=== PATIENT | female | born 1965 | race Caucasian/White ===

== ENCOUNTER 2018-07-13 20:06 | Emergency (ER) | payer MEDICARE ==
[~2018-07-13] VITALS: Ht 170.2 cm; Wt 99.0 kg
[2018-07-13 20:26] VITALS: BP 160/93
== END 2018-07-13 23:09 | disposition left against medical advice (07) ==
LOC: ER 20:07
DX: R05 Cough (principal); Z53.21 Procedure and treatment not carried out due to patient leaving prior to being seen by health care provider
CPT/HCPCS: 71045

== ENCOUNTER 2018-07-24 02:00 | Emergency (ER) | payer MEDICARE, OTHER ==
[~2018-07-24] VITALS: Ht 170.2 cm; Wt 98.6 kg
[2018-07-24 02:05] VITALS: BP 131/70
[2018-07-24 02:51] LABS: BASOPHILS # (AUTO) 0.1 X10'3 (0-0.2); BASOPHILS % (AUTO) 0.7 % (0-1); EOSINOPHILS # (AUTO) 0.1 X10'3 (0-0.9); EOSINOPHILS % (AUTO) 1.6 % (0-6); HEMATOCRIT 37.8 % (35.0-45.0); HEMOGLOBIN 12.4 g/dl (12.0-16.0); LYMPHOCYTES # (AUTO) 2.6 X10'3 (1.1-4.8); LYMPHOCYTES % (AUTO) 29.2 % (21-51); MEAN CORPUSCULAR HEMOGLOBIN 29.5 PG (27.0-31.0); MEAN CORPUSCULAR HGB CONC 32.9 % (33.0-36.5); MEAN CORPUSCULAR VOLUME 89.7 FL (78-98); MEAN PLATELET VOLUME 8.1 FL (7.4-10.4); MONOCYTES % (AUTO) 11.2 % (2-12); NEUTROPHILS # (AUTO) 5.2 X10'3 (1.8-7.7); NEUTROPHILS % (AUTO) 57.3 % (42-75); PLATELET COUNT 291 X10'3 (140-440); RED BLOOD COUNT 4.22 X10'6 (4.20-5.60); RED CELL DISTRIBUTION WIDTH 14.4 % (11.5-14.5); WHITE BLOOD COUNT 9.1 X10'3 (4.5-11.0)
[2018-07-24] MEDS ORDERED: ketorolac trometh inj. 60 MG/2 ML VIAL IM ONE (02:55)
[2018-07-24 02:57] LABS: ALANINE AMINOTRANSFERASE 27 U/L (12-78); ALBUMIN 3.3 G/DL (3.4-5.0); ALBUMIN/GLOBULIN RATIO 0.9 (1.1-1.5); ALKALINE PHOSPHATASE 111 IU/L (46-116); ANION GAP 3 (8-16); ASPARTATE AMINO TRANSFERASE 21 U/L (10-37); BILIRUBIN,TOTAL 0.3 MG/DL (0.1-1.0); BLOOD UREA NITROGEN 19 MG/DL (7-18); BUN/CREATININE RATIO 23.5 (6.6-38.0); CALCIUM 8.5 MG/DL (8.5-10.1); CHLORIDE 101 MMOL/L (99-107); CREATININE 0.81 MG/DL (0.40-0.90); GLUCOSE 98 MG/DL (70-104); POTASSIUM 4.2 MMOL/L (3.5-5.1); SODIUM 137 MMOL/L (135-145); TOTAL CARBON DIOXIDE 32.9 MMOL/L (24-32); TOTAL PROTEIN 7.1 G/DL (6.4-8.2); eGFR 75 ML/MIN
[2018-07-24 03:02] LABS: D-DIMER 0.71 MG/L FEU (0-0.50); INR 0.9 INR; PARTIAL THROMBOPLASTIN TIME 27 SECONDS (22-32); PROTHROMBIN TIME 9.6 SECONDS (9.0-12.0)
[2018-07-24 03:05] LABS: MAGNESIUM 1.8 MG/DL (1.5-2.4)
[2018-07-24] MEDS ORDERED: furosemide 20MG tablet PO ONE (04:30)
== END 2018-07-24 04:39 | disposition home or self-care (01) ==
LOC: ER 02:00
DX: R60.0 Localized edema (principal); R51 Headache; G62.9 Polyneuropathy, unspecified
CPT/HCPCS: 36415; 71045; 80053; 83735; 83880; 84484; 85025; 85379; 85610; 85730; 93005; 93971; 96372; 99285; J1885

== ENCOUNTER 2018-07-27 03:58 | Emergency (ER) | payer MEDICARE, OTHER ==
[~2018-07-27] VITALS: Ht 170.2 cm; Wt 90.9 kg
[2018-07-27 04:02] VITALS: BP 150/80
[2018-07-27] MEDS ORDERED: ketorolac trometh inj. 60 MG/2 ML VIAL IM ONE (04:20)
== END 2018-07-27 04:39 | disposition home or self-care (01) ==
LOC: ER 03:59
DX: G89.29 Other chronic pain (principal); G62.9 Polyneuropathy, unspecified; Z98.890 Other specified postprocedural states
CPT/HCPCS: 96372; 99284; J1885

== ENCOUNTER 2018-08-03 05:43 | Emergency (ER) | payer MEDICARE, OTHER ==
[~2018-08-03] VITALS: Ht 170.2 cm; Wt 95.0 kg
[2018-08-03 05:47] VITALS: BP 123/83
== END 2018-08-03 06:33 ==
LOC: ER 05:44
DX: L08.9 Local infection of the skin and subcutaneous tissue, unspecified (principal); G62.9 Polyneuropathy, unspecified; J45.909 Unspecified asthma, uncomplicated; F17.200 Nicotine dependence, unspecified, uncomplicated; F12.90 Cannabis use, unspecified, uncomplicated; Z90.49 Acquired absence of other specified parts of digestive tract; Z98.890 Other specified postprocedural states; Z89.511 Acquired absence of right leg below knee
CPT/HCPCS: 99282

== ENCOUNTER 2018-08-22 00:06 | Emergency (ER) | payer MEDICARE, OTHER ==
[~2018-08-22] VITALS: Ht 170.2 cm; Wt 90.0 kg
[2018-08-22 00:11] VITALS: BP 122/84
[2018-08-22] MEDS ORDERED: ketorolac trometh. 30mg/ml inj. IM ONE (01:00)
== END 2018-08-22 01:17 | disposition home or self-care (01) ==
LOC: ER 00:07
DX: G89.29 Other chronic pain (principal); M54.5 Low back pain; J45.909 Unspecified asthma, uncomplicated; F12.90 Cannabis use, unspecified, uncomplicated; F17.200 Nicotine dependence, unspecified, uncomplicated; Z90.49 Acquired absence of other specified parts of digestive tract; Z98.890 Other specified postprocedural states; Z89.511 Acquired absence of right leg below knee
CPT/HCPCS: 96372; 99284; J1885

== ENCOUNTER 2018-08-29 11:32 | Emergency (ER) | payer MEDICARE, OTHER ==
[~2018-08-29] VITALS: Ht 170.2 cm; Wt 90.9 kg
[2018-08-29 12:00] VITALS: BP 152/99
[2018-08-29 12:45] LABS: BASOPHILS % (AUTO) 0.4 % (0-1); EOSINOPHILS # (AUTO) 0.1 X10'3 (0-0.9); EOSINOPHILS % (AUTO) 1.8 % (0-6); LYMPHOCYTES % (AUTO) 25.7 % (21-51); MEAN CORPUSCULAR HEMOGLOBIN 28.3 PG (27.0-31.0); MEAN CORPUSCULAR HGB CONC 32.5 % (33.0-36.5); MEAN PLATELET VOLUME 8.1 FL (7.4-10.4); MONOCYTES # (AUTO) 0.9 X10'3 (0-0.9); MONOCYTES % (AUTO) 11.8 % (2-12); NEUTROPHILS # (AUTO) 4.8 X10'3 (1.8-7.7); NEUTROPHILS % (AUTO) 60.3 % (42-75); PLATELET COUNT 286 X10'3 (140-440); RED CELL DISTRIBUTION WIDTH 14.7 % (11.5-14.5); WHITE BLOOD COUNT 7.9 X10'3 (4.5-11.0)
[2018-08-29 13:05] LABS: ALANINE AMINOTRANSFERASE 36 U/L (12-78); ALBUMIN 3.3 G/DL (3.4-5.0); ALBUMIN/GLOBULIN RATIO 0.9 (1.1-1.5); ALKALINE PHOSPHATASE 119 IU/L (46-116); ANION GAP 8 (8-16); ASPARTATE AMINO TRANSFERASE 20 U/L (10-37); BILIRUBIN,TOTAL 0.2 MG/DL (0.1-1.0); BLOOD UREA NITROGEN 11 MG/DL (7-18); BUN/CREATININE RATIO 17.5 (6.6-38.0); CALCIUM 8.9 MG/DL (8.5-10.1); CHLORIDE 102 MMOL/L (99-107); CREATININE 0.63 MG/DL (0.40-0.90); GLUCOSE 126 MG/DL (70-104); SODIUM 139 MMOL/L (135-145); TOTAL CARBON DIOXIDE 29.2 MMOL/L (24-32); TOTAL PROTEIN 7.1 G/DL (6.4-8.2); eGFR > 90 ML/MIN
[2018-08-29] MEDS ORDERED: furosemide 20MG tablet PO ONE (14:25)
[2018-08-29] MEDS ORDERED: FURO-150 PO (14:26)
== END 2018-08-29 14:45 | disposition home or self-care (01) ==
LOC: ER 11:32
DX: R60.0 Localized edema (principal); L98.8 Other specified disorders of the skin and subcutaneous tissue; G62.9 Polyneuropathy, unspecified; J45.909 Unspecified asthma, uncomplicated; M79.7 Fibromyalgia; M19.90 Unspecified osteoarthritis, unspecified site; F12.90 Cannabis use, unspecified, uncomplicated; Z90.49 Acquired absence of other specified parts of digestive tract; Z76.0 Encounter for issue of repeat prescription; Z89.511 Acquired absence of right leg below knee; Z98.890 Other specified postprocedural states; Z79.899 Other long term (current) drug therapy
CPT/HCPCS: 36415; 80053; 83880; 85025; 93970; 99284

== ENCOUNTER 2018-09-22 10:30 | Emergency (ER) | payer MEDICARE, OTHER ==
[~2018-09-22] VITALS: Ht 170.2 cm; Wt 90.0 kg
[~2018-09-22 10:30] MED LIST: FURO-150 PO
[2018-09-22 11:02] VITALS: BP 123/93
[2018-09-22] MEDS ORDERED: orphenadrine citrate 60mg/2ml inj. IM ONE (11:20)
[2018-09-22] MEDS ORDERED: ketorolac tromethamine 15mg/ml inj. IM ONE (11:20)
[2018-09-22] MEDS ORDERED: IBUP-1985 PO (11:44)
== END 2018-09-22 11:50 | disposition home or self-care (01) ==
LOC: ER 10:30
DX: G89.29 Other chronic pain (principal); M54.41 Lumbago with sciatica, right side; M54.2 Cervicalgia; J45.909 Unspecified asthma, uncomplicated; F12.90 Cannabis use, unspecified, uncomplicated; Z89.511 Acquired absence of right leg below knee; Z90.49 Acquired absence of other specified parts of digestive tract; Z98.890 Other specified postprocedural states; Z79.899 Other long term (current) drug therapy
CPT/HCPCS: 96372; 99283; J1885; J2360

== ENCOUNTER 2018-11-12 10:00 | Emergency (ER) | payer MEDICARE, OTHER ==
[~2018-11-12] VITALS: Ht 170.2 cm; Wt 75.0 kg
[~2018-11-12 10:00] MED LIST changes: -FURO-150 PO; +IBUP-1985 PO
[2018-11-12 10:14] VITALS: BP 126/77
[2018-11-12] MEDS ORDERED: orphenadrine citrate 60mg/2ml inj. IM ONE (10:35)
[2018-11-12] MEDS ORDERED: ketorolac trometh inj. 60 MG/2 ML VIAL IM ONE (10:35)
== END 2018-11-12 10:55 | disposition home or self-care (01) ==
LOC: ER 10:02
DX: G89.29 Other chronic pain (principal); M54.5 Low back pain; J45.909 Unspecified asthma, uncomplicated; G62.9 Polyneuropathy, unspecified; M79.7 Fibromyalgia; F12.10 Cannabis abuse, uncomplicated; M19.90 Unspecified osteoarthritis, unspecified site; Z90.49 Acquired absence of other specified parts of digestive tract; Z79.899 Other long term (current) drug therapy
CPT/HCPCS: 96372; 99283; J1885; J2360

== ENCOUNTER 2018-12-11 01:09 | Emergency (ER) | payer MEDICARE, OTHER ==
[~2018-12-11] VITALS: Ht 170.2 cm; Wt 79.5 kg
[2018-12-11 01:21] VITALS: BP 133/89
[2018-12-11] MEDS ORDERED: ketorolac trometh inj. 60 MG/2 ML VIAL IM ONE (03:30)
[2018-12-11] MEDS ORDERED: cyclobenzaprine 10mg tablet PO ONE (03:30)
[2018-12-11] MEDS ORDERED: CYCL-1 PO (03:30)
== END 2018-12-11 03:55 | disposition home or self-care (01) ==
LOC: ER 01:10
DX: G89.29 Other chronic pain (principal); M25.562 Pain in left knee; M79.7 Fibromyalgia; G62.9 Polyneuropathy, unspecified; J45.909 Unspecified asthma, uncomplicated; M19.90 Unspecified osteoarthritis, unspecified site; F12.90 Cannabis use, unspecified, uncomplicated
CPT/HCPCS: 96372; 99284; J1885

== ENCOUNTER 2019-01-01 02:49 | Emergency (ER) | payer MEDICARE, OTHER ==
[~2019-01-01] VITALS: Ht 170.2 cm; Wt 80.0 kg
[~2019-01-01 02:49] MED LIST changes: +CYCL-1 PO
[2019-01-01 02:53] VITALS: BP 116/74
[2019-01-01] MEDS ORDERED: ketorolac trometh inj. 60 MG/2 ML VIAL IM ONE (03:25)
== END 2019-01-01 03:44 | disposition home or self-care (01) ==
LOC: ER 02:50
DX: M54.5 Low back pain (principal); G89.29 Other chronic pain; J45.909 Unspecified asthma, uncomplicated; M19.90 Unspecified osteoarthritis, unspecified site; F12.90 Cannabis use, unspecified, uncomplicated; Z90.49 Acquired absence of other specified parts of digestive tract; Z98.890 Other specified postprocedural states; Z79.899 Other long term (current) drug therapy
CPT/HCPCS: 96372; 99283; J1885